=== PATIENT | male | born 1975 | race Asian ===

== ENCOUNTER 2016-06-14 09:47 | Emergency (ER) | payer OTHER ==
[2016-06-14] MEDS ORDERED: LIDOCAINE VISCOUS 2% 15 ML UDC MM STA (10:33)
[2016-06-14] MEDS ORDERED: MAG HYDROX/AL HYDROX/SIMETH 30 ML UDC PO STA (10:34)
[2016-06-14] MEDS ORDERED: LIDOCAINE VISCOUS 2% 15 ML UDC MM ONE (10:37)
[2016-06-14] MEDS ORDERED: MAG HYDROX/AL HYDROX/SIMETH 30 ML UDC ONE (10:37)
[2016-06-14] MEDS ORDERED: IOPAMIDOL-300 100 ML VIAL IVP ONE (12:42)
== END 2016-06-14 14:39 | disposition home or self-care (01) ==
DX: K59.09 Other constipation (principal)
CPT/HCPCS: 36415; 74177; 80053; 83690; 84484; 85025; 99283; 99284; A9270; Q9967

== ENCOUNTER 2016-11-26 11:35 | Emergency (ER) | payer OTHER ==
[2016-11-26] MEDS ORDERED: DEXAMETHASONE 10 MG/ML VIAL PO STA (12:51)
[2016-11-26] MEDS ORDERED: HYDROcod/ACETAM 5/325 MG TABLET PO STA (12:51)
[2016-11-26] MEDS ORDERED: KETOROLAC 60 MG/2 ML VIAL IM STA (12:52)
[2016-11-26] MEDS ORDERED: CYCLOBENZAPRINE 10 MG TABLET PO STA (12:52)
--- NOTE | 2016-11-26 12:54 | ED Physician Documentation ---
History of Present Illness - Stated complaint Stated Complaint: STIFF NECK/PX - Chief complaint Chief Complaint: Heent - History obtained from History obtained from: Patient - History of Present Illness Timing: How many days ago (5) Pain level max: 8 Pain level now: 7 Quality: pain Improved by: rest Worsened by: movement, swelling - Additonal information Additional information: Patient is a 41-year-old male who presents to the emergency department with right-sided neck pain for the last 4-5 days. Has developed a sore throat over the past 2-3 days. Pain and difficulty with swallowing. States felt warm last night. No headaches. No visual changes. No numbness or tingling. States he did take Motrin once and that it did not help much. Review of Systems Constitutional: denies: Chills, Myalgias Eyes: denies: Decreased vision Ears: denies: Ear pain Nose: denies: Rhinorrhea / runny nose, Congestion Throat: denies: Sore throat Cardiac: denies: Chest pain / pressure Respiratory: denies: Cough, Wheezing GI: denies: Abdominal Pain, Nausea, Vomiting, Diarrhea Skin: denies: Rash Musculoskeletal: denies: Back pain Neurologic: denies: Focal weakness, Numbness, Head injury PD PAST MEDICAL HISTORY - Past Medical History Past Medical History: Yes Cardiovascular: None Respiratory: None Neuro: None Endocrine/Autoimmune: None Musculoskeletal: Gout - Past Surgical History Past Surgical History: No - Present Medications Home Medications: Ambulatory Orders Medication Instructions Recorded Confirmed Hydrocodone/Acetaminophen 1 - 2 each PO Q6H PRN #14 tablet 11/26/16 [Hydrocodon-Acetaminophen 5-325] Ibuprofen [Motrin] 800 mg PO Q8H PRN #30 tablet 11/26/16 Prednisone 40 mg PO DAILY #10 tablet 11/26/16 - Allergies Allergies/Adverse Reactions: Allergies Allergy/AdvReac Type Severity Reaction Status Date / Time No Known Drug Allergies Allergy Verified 09/06/13 15:12 - Social History Does the pt smoke?: No Smoking Status: Never smoker Does the pt drink ETOH?: No Does the pt have substance abuse?: No - Immunizations Immunizations are current?: Yes - POLST Patient has POLST: Yes PD ED PE NORMAL - Vitals Vital signs reviewed: Yes - General General: Alert and oriented X 3, No acute distress, Well developed/nourished - HEENT HEENT: PERRL, EOMI, Moist mucous membranes, Other (Moderate posterior oropharyngeal erythema without tonsillar exudates. Uvula midline. No trismus. Normal phonation.) - Neck Neck: Supple, no meningeal sign, Other (Tender palpation over the right side of the neck, reproduces his pain. No visible swelling.) - Cardiac Cardiac: RRR, Strong equal pulses - Respiratory Respiratory: No respiratory distress, Clear bilaterally - Abdomen Abdomen: Soft, Non tender, Non distended - Back Back: No CVA TTP, No spinal TTP - Derm Derm: Warm and dry, No rash - Neuro Neuro: Alert and oriented X 3 - Psych Psych: Normal mood, Normal affect Results - Vitals Vitals: Vital Signs - 24 hr 11/26/16 11/26/16 11:41 13:52 Temperature 36.7 C Heart Rate 63 56 L Respiratory 18 17 Rate Blood Pressure 129/84 H 138/90 H O2 Saturation 98 98 Oxygen O2 Source Room air - Labs Labs: Laboratory Tests 11/26/16 12:50 Group A Strep Rapid Negative PD MEDICAL DECISION MAKING - ED course Complexity details: reviewed results, re-evaluated patient, considered differential, d/w patient ED course: Patient is a 41-year-old male who presents to the emergency department what appears to be pharyngitis. No evidence of retropharyngeal abscess or peritonsillar abscess. He feels much better after Toradol, Decadron and hydrocodone. Tolerating p.o. without difficulty. He is well hydrated, nontoxic. No visible swelling on the neck. Rapid strep is negative. Will place him on pain medication and steroids for the next few days at home and he will return if he worsens. No evidence of meningitis, encephalitis. Patient counseled regarding signs and symptoms for which I believe and urgent re- evaluation would be necessary. Patient with good understanding of and agreement to plan and is comfortable going home at this time This document was made in part using voice recognition software. While efforts are made to proofread this document, sound alike and grammatical errors may occur. Departure - Departure Disposition: 01 Home, Self Care Clinical Impression: Pharyngitis Qualifiers: Pharyngitis/tonsillitis etiology: unspecified etiology Qualified Code(s): J02.9 - Acute pharyngitis, unspecified Condition: Good Instructions: ED Pharyngitis Viral Follow-Up: your,doctor in 3 days for recheck [Other] Prescriptions: Hydrocodone/Acetaminophen [Hydrocodon-Acetaminophen 5-325] 1 - 2 each PO Q6H PRN #14 tablet PRN Reason: pain Ibuprofen [Motrin] 800 mg PO Q8H PRN #30 tablet PRN Reason: PAIN &/OR FEVER Prednisone 40 mg PO DAILY #10 tablet Comments: Return if you worsen. Your strep test is negative today. This should improve over the next few days. As we discussed previously, if you are not improving, you need to return as there are things such as abscesses that can occur further down in the throat that are difficult to see on examination. Do not drink alcohol or drive while on narcotic pain medicine. Note that many narcotic pain relievers also contain tylenol/acetaminophen. Please ensure that your total dose of acetaminophen from all sources does not exceed 3 grams (3000mg) per day. You may constipated on this medication, take a stool softener such as "Colace" twice a day while you are on it. Also recommend a [id number] laxative such as senna or MiraLAX any day that you do not have a bowel movement. If you received narcotic pain medication in the emergency department, do not drive or operate machinery for the next 24 hours. Forms: Activity restrictions Discharge Date/Time: 11/26/16 14:10
[2016-11-26] MEDS ORDERED: DEXAMETHASONE 10 MG/ML VIAL ONE (12:57)
[2016-11-26] MEDS ORDERED: KETOROLAC 60 MG/2 ML VIAL ONE (12:57)
[2016-11-26] MEDS ORDERED: HYDROcod/ACETAM 5/325 MG TABLET ONE (12:57)
[2016-11-26] MEDS ORDERED: CHERRY SYRUP 10 ML UDC PO ONE (12:57)
[2016-11-26] MEDS ORDERED: CYCLOBENZAPRINE 10 MG TABLET PO ONE (12:57)
[2016-11-26 13:06] LABS: RAPID STREP SCREEN REAGENT QC YELLOW (YELLOW)
[2016-11-26 13:55] VITALS: BP 138/90
== END 2016-11-26 14:10 | disposition home or self-care (01) ==
LOC: ED 11:35
DX: J02.9 Acute pharyngitis, unspecified (principal)
CPT/HCPCS: 87070; 87430; 96372; 99283; A9270

== ENCOUNTER 2016-11-30 19:45 | Emergency (ER) | payer OTHER ==
[2016-11-30] MEDS ORDERED: CYCLOBENZAPRINE 10 MG TABLET PO STA (20:24)
[2016-11-30] MEDS ORDERED: CYCLOBENZAPRINE 10 MG TABLET PO ONE (20:49)
--- NOTE | 2016-11-30 21:43 | ED Physician Documentation ---
History of Present Illness - Stated complaint Stated Complaint: NECK/HEAD PX - Chief complaint Chief Complaint: General - History obtained from History obtained from: Patient - History of Present Illness Timing: How many weeks ago (1) Pain level max: 7 Pain level now: 5 Improved by: rest Worsened by: movement - Additonal information Additional information: Patient is a 41-year-old male who presents to the emergency department with recurrent neck pain. He did improve last week after being seen here and treated with medications. States that the pain is returning, worse with turning his head left or right. No difficulty swallowing or pain with swallowing. No fevers. Took Motrin today. Review of Systems Ten Systems: 10 systems reviewed and negative Constitutional: denies: Fever, Chills Nose: denies: Rhinorrhea / runny nose, Congestion Throat: denies: Sore throat Cardiac: denies: Chest pain / pressure Respiratory: denies: Cough, Wheezing GI: denies: Abdominal Pain, Nausea, Vomiting, Diarrhea Skin: denies: Rash Musculoskeletal: denies: Back pain Neurologic: denies: Focal weakness, Numbness, Headache PD PAST MEDICAL HISTORY - Past Medical History Past Medical History: No Cardiovascular: None Respiratory: None Neuro: None Endocrine/Autoimmune: None Musculoskeletal: Gout - Past Surgical History Past Surgical History: No - Present Medications Home Medications: Ambulatory Orders Medication Instructions Recorded Confirmed Hydrocodone/Acetaminophen 1 - 2 each PO Q6H PRN #14 tablet 11/26/16 11/30/16 [Hydrocodon-Acetaminophen 5-325] Ibuprofen [Motrin] 800 mg PO Q8H PRN #30 tablet 11/26/16 11/30/16 Prednisone 40 mg PO DAILY #10 tablet 11/26/16 11/30/16 Cyclobenzaprine [Flexeril] 10 mg PO TID PRN #20 tablet 11/30/16 - Allergies Allergies/Adverse Reactions: Allergies Allergy/AdvReac Type Severity Reaction Status Date / Time No Known Drug Allergies Allergy Verified 11/30/16 20:11 - Social History Does the pt smoke?: No Smoking Status: Never smoker Does the pt drink ETOH?: No Does the pt have substance abuse?: No - Immunizations Immunizations are current?: Yes - POLST Patient has POLST: Yes PD ED PE NORMAL - Vitals Vital signs reviewed: Yes - General General: Alert and oriented X 3, No acute distress, Well developed/nourished - HEENT HEENT: PERRL, Ears normal, Moist mucous membranes, Pharynx benign, Dentition benign - Neck Neck: Supple, no meningeal sign, No JVD, No bruit, Other (Muscle spasm present on the right side of the neck, no adenopathy. No bony tenderness. Normal pharyngeal exam) - Cardiac Cardiac: RRR - Respiratory Respiratory: No respiratory distress, Clear bilaterally - Abdomen Abdomen: Soft, Non tender - Back Back: No CVA TTP, No spinal TTP - Derm Derm: Warm and dry, No rash - Neuro Neuro: Alert and oriented X 3, plate straightener 2-12 intact, No motor deficit, No sensory deficit, Normal speech - Psych Psych: Normal mood, Normal affect Results - Vitals Vitals: Vital Signs - 24 hr 11/30/16 11/30/16 19:51 21:59 Temperature 36.5 C 36.3 C L Heart Rate 74 56 L Respiratory 18 18 Rate Blood Pressure 150/84 H 129/83 H O2 Saturation 98 97 Oxygen O2 Source Room air PD MEDICAL DECISION MAKING - ED course Complexity details: reviewed old records, considered differential, d/w patient ED course: Patient presents to the emergency department what appears to be spasm of the right side of the neck. Given Flexeril here and feels much better, range of motion greatly improved. No evidence of meningitis, encephalitis, retropharyngeal abscess, peritonsillar abscess. Will place on Flexeril for home and follow-up with his doctor. Patient counseled regarding signs and symptoms for which I believe and urgent re-evaluation would be necessary. Patient with good understanding of and agreement to plan and is comfortable going home at this time This document was made in part using voice recognition software. While efforts are made to proofread this document, sound alike and grammatical errors may occur. Departure - Departure Disposition: 01 Home, Self Care Clinical Impression: Neck muscle spasm Condition: Good Instructions: ED Spasm Neck No Injury Follow-Up: [facility] [Provider Group] - Within 1 week Prescriptions: Cyclobenzaprine [Flexeril] 10 mg PO TID PRN #20 tablet PRN Reason: Spasms Comments: Return if you worsen. Do not drive or operate heavy machinery while taking the Flexeril Discharge Date/Time: 11/30/16 21:59
[2016-11-30 22:03] VITALS: BP 129/83
== END 2016-11-30 21:59 | disposition home or self-care (01) ==
LOC: ED 19:45
DX: M62.838 Other muscle spasm (principal); M54.2 Cervicalgia
CPT/HCPCS: 99283; A9270

== ENCOUNTER 2017-02-11 17:04 | Emergency (ER) | payer OTHER ==
[2017-02-11 17:35] VITALS: BP 134/73
[2017-02-11] MEDS ORDERED: IBUPROFEN 400 MG TABLET PO STA (17:40)
[2017-02-11] MEDS ORDERED: ACETAMINOPHEN 325 MG TABLET PO STA (17:40)
[2017-02-11] MEDS ORDERED: CEPHALEXIN 250 MG CAPSULE PO STA (17:41)
--- NOTE | 2017-02-11 17:48 | ED Physician Documentation ---
History of Present Illness - Stated complaint Stated Complaint: LT FT SWELLING - Chief complaint Chief Complaint: Ext Problem - Additonal information Additional information: hx from pt 41 male AD noted redness to top of left foot last Sunday after removing work boots thought it might be gout which he has a hx of took prednisone with no sig changes next day tried colchicine which seemed to make it worse now more red and more painful and subj fever Review of Systems Constitutional: reports: Fever Skin: reports: Rash Musculoskeletal: reports: Extremity pain Immunocompromised: denies: Immunocompromised PD PAST MEDICAL HISTORY - Past Medical History Cardiovascular: None Respiratory: None Neuro: None Endocrine/Autoimmune: None Musculoskeletal: Gout - Past Surgical History Past Surgical History: No - Present Medications Home Medications: Ambulatory Orders Medication Instructions Recorded Confirmed Hydrocodone/Acetaminophen 1 - 2 each PO Q6H PRN #14 tablet 11/26/16 11/30/16 [Hydrocodon-Acetaminophen 5-325] Ibuprofen [Motrin] 800 mg PO Q8H PRN #30 tablet 11/26/16 11/30/16 Prednisone 40 mg PO DAILY #10 tablet 11/26/16 11/30/16 Cyclobenzaprine [Flexeril] 10 mg PO TID PRN #20 tablet 11/30/16 Cephalexin [Keflex] 500 mg PO Q6H #28 capsule 02/11/17 - Allergies Allergies/Adverse Reactions: Allergies Allergy/AdvReac Type Severity Reaction Status Date / Time No Known Drug Allergies Allergy Verified 02/11/17 17:35 - Social History Does the pt smoke?: No Smoking Status: Never smoker Does the pt drink ETOH?: No Does the pt have substance abuse?: No - Immunizations Immunizations are current?: Yes - POLST Patient has POLST: Yes PD ED PE NORMAL - Vitals Vital signs reviewed: Yes - Cardiac Cardiac: RRR - Respiratory Respiratory: No respiratory distress, Clear bilaterally - Extremities Extremities: Other (L foot - warmth swelling and erythema across top of left foot, no local joint pain or swelling, some abrasions to lateral foot perhabs from boot and possible port of entry for infection) Results - Vitals Vitals: Vital Signs - 24 hr 02/11/17 17:23 Temperature 98.3 C H Heart Rate 68 Respiratory 16 Rate Blood Pressure 134/73 H O2 Saturation 98 Oxygen O2 Source Room air Departure - Departure Disposition: 01 Home, Self Care Clinical Impression: Cellulitis Qualifiers: Site of cellulitis: extremity Site of cellulitis of extremity: lower extremity Laterality: left Qualified Code(s): L03.116 - Cellulitis of left lower limb Condition: Good Instructions: ED Infec Skin Cellulitis Follow-Up: [facility] H[facility] [Provider Group] (within 48 hr for an ER follow up) Prescriptions: Cephalexin [Keflex] 500 mg PO Q6H #28 capsule Comments: Follow up at [facility] for a recheck within 48 hr - please have them recheck your blood pressure as well because it was high today
[2017-02-11] MEDS ORDERED: ACETAMINOPHEN 325 MG TABLET PO ONE (17:49)
[2017-02-11] MEDS ORDERED: IBUPROFEN 400 MG TABLET PO ONE (17:49)
[2017-02-11] MEDS ORDERED: CEPHALEXIN 250 MG CAPSULE PO ONE (17:50)
[2017-02-11] MEDS ORDERED: CEPHALEXIN 250 MG Prepack 8 PO ONE (18:03)
== END 2017-02-11 18:07 | disposition home or self-care (01) ==
LOC: ED 17:04
DX: L03.116 Cellulitis of left lower limb (principal); M10.9 Gout, unspecified
CPT/HCPCS: 99283; A9270

== ENCOUNTER 2017-02-15 02:29 | Emergency (ER) | payer OTHER ==
[2017-02-15 02:39] VITALS: BP 135/83
[2017-02-15 02:57] LABS: BASOPHILS % (AUTO) 0.4 %; EOSINOPHILS # (AUTO) 0.2 10^3/uL (0.0-0.7); EOSINOPHILS % (AUTO) 1.7 %; HCT - HEMATOCRIT 37.4 % (42.0-52.0); HGB - HEMOGLOBIN 12.9 g/dL (14.0-18.0); LYMPHOCYTES # (AUTO) 3.5 10^3/uL (1.5-3.5); LYMPHOCYTES % (AUTO) 37.3 %; MEAN CORPUSCULAR HEMOGLOBIN 30.2 pg (27.0-31.0); MEAN CORPUSCULAR HGB CONC 34.6 g/dL (32.0-36.0); MEAN CORPUSCULAR VOLUME 87.4 fL (80.0-94.0); MEAN PLATELET VOLUME 7.1 fL (7.4-11.4); MONOCYTES # (AUTO) 0.6 10^3/uL (0.0-1.0); MONOCYTES % (AUTO) 6.8 %; NEUTROPHILS # (AUTO) 5.1 10^3/uL (1.5-6.6); NEUTROPHILS % (AUTO) 53.8 %; NUCLEATED RED BLOOD CELLS AUTO 0.1 /100WBC; RED BLOOD COUNT 4.28 10^6/uL (4.70-6.10); RED CELL DISTRIBUTION WIDTH 13.2 % (12.0-15.0); UNCORRECTED WHITE BLOOD COUNT 9.5 x10^3/uL; WHITE BLOOD COUNT 9.5 x10^3/uL (4.8-10.8)
--- NOTE | 2017-02-15 03:19 | XRAY Preliminary Report ---
Exam: XR FOOT 2 VIEW LT IMPRESSION: 1. Fracture of uncertain age at the base of the fifth proximal phalanx, new compared with 03/21/2016. 2. Soft tissue swelling. [facility] SITE ID: [id number]
--- NOTE | 2017-02-15 03:22 | XRAY Report ---
EXAM: LEFT FOOT RADIOGRAPHY EXAM DATE: 02/15/2017 03:11 AM. CLINICAL HISTORY: Foot pain with overlying cellulitis. COMPARISON: 03/21/2016. TECHNIQUE: 2 views. FINDINGS: Bones: Fracture of uncertain age at the base of the fifth proximal phalanx, not seen on the prior exa m. No focal area of bone destruction identified. Joints: No dislocation seen. Joint spaces appear intact. Soft Tissues: Soft tissue swelling. IMPRESSION: 1. Fracture of uncertain age at the base of the fifth proximal phalanx, new compared with 03/21/2016. 2. Soft tissue swelling. [facility] Referring Provider Line: [phone] SITE ID: [id number]
[2017-02-15] MEDS ORDERED: KETOROLAC 60 MG/2 ML VIAL IM STA (04:11)
--- NOTE | 2017-02-15 04:14 | ED Physician Documentation ---
PD HPI LOWER EXT INJURY - Stated complaint Stated Complaint: L FOOT PX - Chief complaint Chief Complaint: Ext Problem - History obtained from History obtained from: Patient, Friend - History of Present Illness PD HPI LOW EXT INJURY LOCATION: Left, Foot Where injury occurred: Home Timing - onset: How many days ago (4) Timing - details: Gradual onset, Still present Worsened by: Moving, Palpating Similar symptoms before: Work up / diagnostics, Treatment Recently seen: Clinic - Additional information Additional information: Patient is a 41 year old male with no significant past medical history who is presenting to the emergency department for foot pain. Patient was diagnosed with cellulitis 4 days prior. Patient has been taking keflex. Patient states that the area of redness is getting smaller but the pain has gotten worse. Patient states that he has not taken anything for the pain. Patient denied nausea, vomiting, fever or chills. Review of Systems Constitutional: denies: Fever, Chills Eyes: reports: Decreased vision, Reviewed and negative Ears: reports: Reviewed and negative Nose: reports: Reviewed and negative Throat: reports: Reviewed and negative Cardiac: denies: Chest pain / pressure Respiratory: reports: Reviewed and negative GI: denies: Nausea, Vomiting : reports: Reviewed and negative Skin: reports: Rash Musculoskeletal: reports: Extremity pain, Extremity swelling Neurologic: denies: Generalized weakness, Focal weakness, Numbness Immunocompromised: denies: Immunocompromised PD PAST MEDICAL HISTORY - Past Medical History Past Medical History: Yes Cardiovascular: None Respiratory: None Neuro: None Endocrine/Autoimmune: None Musculoskeletal: Gout - Past Surgical History Past Surgical History: No - Present Medications Home Medications: Ambulatory Orders Medication Instructions Recorded Confirmed Ibuprofen [Motrin] 800 mg PO Q8H PRN #30 tablet 11/26/16 02/15/17 Cephalexin [Keflex] 500 mg PO Q6H #28 capsule 02/11/17 02/15/17 Naproxen 375 mg PO BID #14 tablet 02/15/17 - Allergies Allergies/Adverse Reactions: Allergies Allergy/AdvReac Type Severity Reaction Status Date / Time No Known Drug Allergies Allergy Verified 02/11/17 17:35 - Social History Does the pt smoke?: Yes Smoking Status: Current every day smoker Does the pt drink ETOH?: No Does the pt have substance abuse?: No - Immunizations Immunizations are current?: Yes - POLST Patient has POLST: No PD ED PE NORMAL - Vitals Vital signs reviewed: Yes - General General: Alert and oriented X 3, No acute distress, Well developed/nourished - HEENT HEENT: Atraumatic, PERRL - Neck Neck: Supple, no meningeal sign - Cardiac Cardiac: RRR, No murmur - Respiratory Respiratory: No respiratory distress - Abdomen Abdomen: Non distended - Neuro Neuro: Alert and oriented X 3, No motor deficit, No sensory deficit, Normal speech - Psych Psych: Normal mood, Normal affect PD ED PE EXPANDED - Derm Derm: Rash (cellulitic rash of left foot) - Extremities Extremities: Left foot (cellulitis of left superior, lateral foot. area is smaller than previous outline) Results - Vitals Vitals: Vital Signs - 24 hr 02/15/17 02:35 Temperature 37 C Heart Rate 68 Respiratory 16 Rate Blood Pressure 135/83 H O2 Saturation 98 Oxygen O2 Source Room air - Labs Labs: Laboratory Tests 02/15/17 02/15/17 02/15/17 02:51 02:51 02:51 WBC 9.5 RBC 4.28 L Hgb 12.9 L Hct 37.4 L MCV 87.4 MCH 30.2 MCHC 34.6 RDW 13.2 Plt Count 231 MPV 7.1 L Neut # 5.1 Lymph # 3.5 Mccreary # 0.6 Eos # 0.2 Baso # 0.0 Absolute Nucleated RBC 0.01 Nucleated RBC % 0.1 ESR 29 H C-Reactive Protein < 1.0 - Rads (name of study) foot x-ray Radiology: Final report received (age indetermine hairline fx at base of 5th metatarsal) PD MEDICAL DECISION MAKING - ED course Complexity details: reviewed old records, reviewed results, re-evaluated patient , considered differential, d/w patient ED course: Patient was seen and examined at bedside. patient's vital signs were within normal limits. labs were drawn and imaging was ordered. patient's labs showed no major abnormalities. x ray showed a questionable fracture at the base of the metacarpal but patient denied any type of trauma and the cortices were intact so it was unlikely an acute fracture. patient was treated with toradol for pain. Patient required no further work up was stable for discharge with outpatient follow up. Departure - Departure Disposition: 01 Home, Self Care Clinical Impression: Cellulitis Condition: Good Instructions: ED Infec Skin Cellulitis Follow-Up: GAGANDEEP BARRAGAN [Primary Care Provider] - Tomorrow Prescriptions: Naproxen 375 mg PO BID #14 tablet Comments: Your diagnostics today were within normal limits. You pain is likely secondary to your skin infection. You should continue with the antibiotics. You can take motrin or tylenol as needed for pain. [place]. You can return to the emergency department at any time for new, worsening or uncontrollable symptoms. Forms: Activity restrictions
[2017-02-15] MEDS ORDERED: KETOROLAC 60 MG/2 ML VIAL ONE (04:40)
== END 2017-02-15 05:05 | disposition home or self-care (01) ==
LOC: ED 02:29
DX: L03.116 Cellulitis of left lower limb (principal); F17.200 Nicotine dependence, unspecified, uncomplicated
CPT/HCPCS: 36415; 85025; 85651; 86140; 96372; 99283

== ENCOUNTER 2017-05-14 05:52 | Emergency (ER) | payer OTHER ==
[2017-05-14 06:01] VITALS: BP 132/82
[2017-05-14] MEDS ORDERED: cephALEXin 250 MG CAPSULE PO STA (06:20)
[2017-05-14] MEDS ORDERED: IBUPROFEN 600 MG TABLET PO STA (06:20)
--- NOTE | 2017-05-14 06:21 | ED Physician Documentation ---
PD HPI LOWER EXT INJURY - Stated complaint Stated Complaint: ALEXA FOOT PAIN,FEVER - Chief complaint Chief Complaint: Ext Problem - History obtained from History obtained from: Patient - History of Present Illness PD HPI LOW EXT INJURY LOCATION: Right, Left, Foot Type of injury: No: Fall, Twist Where injury occurred: Home Timing - onset: How many days ago (3) Timing - details: Gradual onset, Still present Improved by: Immobilization Worsened by: Moving, Palpating Associated symptoms: Swelling, Discolored Similar symptoms before: Work up / diagnostics, Treatment Recently seen: Not recently seen - Additional information Additional information: patient is a 41 year old male with multiple ER visits who is presenting to the emergency department for bilateral foot pain, worse on the right. patient states that it has been going on since sunday and that he thinks it might have started after having to squat like a duck. patient states that he also has gout but it doesn't feel like gout. patient states that he has high arches and needs new orthotics. Patient denied any trauma but states that he had a fever yesterday. Review of Systems Constitutional: reports: Fever. denies: Chills, Myalgias Eyes: reports: Reviewed and negative Ears: reports: Reviewed and negative Nose: reports: Reviewed and negative Throat: reports: Reviewed and negative Cardiac: reports: Reviewed and negative GI: reports: Reviewed and negative : reports: Reviewed and negative Skin: reports: Rash. denies: Lesions, Abrasion (s) Musculoskeletal: reports: Extremity pain, Extremity swelling Neurologic: denies: Generalized weakness Immunocompromised: denies: Immunocompromised PD PAST MEDICAL HISTORY - Past Medical History Past Medical History: Yes Cardiovascular: None Respiratory: None Neuro: None Endocrine/Autoimmune: None Musculoskeletal: Gout - Past Surgical History Past Surgical History: No - Present Medications Home Medications: Ambulatory Orders Medication Instructions Recorded Confirmed Ibuprofen [Motrin] 800 mg PO Q8H PRN #30 tablet 11/26/16 05/14/17 Naproxen 375 mg PO BID #14 tablet 02/15/17 05/14/17 Cephalexin [Keflex] 500 mg PO Q6H 7 Days capsule 05/14/17 HYDROcod/ACETAM 5/325 [[place] 5/325] 1 tab PO Q6H PRN 05/14/17 05/14/17 - Allergies Allergies/Adverse Reactions: Allergies Allergy/AdvReac Type Severity Reaction Status Date / Time No Known Drug Allergies Allergy Verified 05/14/17 05:58 - Social History Does the pt smoke?: Yes Smoking Status: Current every day smoker Does the pt drink ETOH?: No Does the pt have substance abuse?: No - Immunizations Immunizations are current?: Yes - POLST Patient has POLST: No PD ED PE NORMAL - Vitals Vital signs reviewed: Yes - General General: Alert and oriented X 3, No acute distress, Well developed/nourished - HEENT HEENT: Atraumatic - Neck Neck: Supple, no meningeal sign - Cardiac Cardiac: RRR - Respiratory Respiratory: No respiratory distress - Abdomen Abdomen: Non distended - Neuro Neuro: Alert and oriented X 3, No motor deficit, No sensory deficit, Normal speech PD ED PE EXPANDED - Extremities Extremities: Right foot (tenderness warmth and erythema to medial component of right foot) Results - Vitals Vitals: Vital Signs - 24 hr 05/14/17 05:55 Temperature 36.2 C L Heart Rate 80 Respiratory 16 Rate Blood Pressure 132/82 H O2 Saturation 100 Oxygen O2 Source Room air PD MEDICAL DECISION MAKING - ED course Complexity details: reviewed old records, reviewed results, re-evaluated patient , considered differential, d/w patient ED course: Patient was seen and examined at bedside. patient's findings were consistent with cellulitis. patient was treated with keflex and ibuprofen and the cellulitis was outlined. Patient required no further work up and was stable for discharge with outpatient follow up. Departure - Departure Disposition: 01 Home, Self Care Clinical Impression: Cellulitis Condition: Good Instructions: Cellulitis Dc Follow-Up: GAGANDEEP BARRAGAN [Primary Care Provider] - Tomorrow Prescriptions: Cephalexin [Keflex] 500 mg PO Q6H 7 Days capsule Comments: It appears as if you are developing an infection on your right foot. You have been treated with your first dose of antibiotics today. It has been outlined and you will need to [place] up with [place] doctor for further evaluation and care. Forms: Activity restrictions
== END 2017-05-14 06:45 | disposition home or self-care (01) ==
LOC: ED 05:52
DX: L03.115 Cellulitis of right lower limb (principal); F17.200 Nicotine dependence, unspecified, uncomplicated
CPT/HCPCS: 99283; A9270

== ENCOUNTER 2017-06-19 04:48 | Emergency (ER) | payer OTHER ==
[2017-06-19] MEDS ORDERED: KETOROLAC 60 MG/2 ML VIAL IM STA (05:02)
--- NOTE | 2017-06-19 05:03 | ED Physician Documentation ---
PD HPI LOWER EXT INJURY - Stated complaint Stated Complaint: RT FOOT PAIN - Chief complaint Chief Complaint: Ext Problem - History obtained from History obtained from: Patient - History of Present Illness PD HPI LOW EXT INJURY LOCATION: Right, Foot Type of injury: No: Fall, Twist Where injury occurred: Home Timing - onset: Chronic Timing - details: Intermittant Similar symptoms before: Work up / diagnostics, Treatment Recently seen: Clinic - Additional information Additional information: Patient is a 41 year old male with multiple ER visits for foot pain. Patient states that it had been better over the weekend when he was able to rest, but he had to walk a lot at work and the pain came back[place]. 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 Patient had no systemic symptoms or new trauma. Review of Systems Constitutional: denies: Fever, Chills Eyes: reports: Reviewed and negative Ears: reports: Reviewed and negative Nose: reports: Reviewed and negative Throat: reports: Reviewed and negative Cardiac: reports: Reviewed and negative Respiratory: reports: Reviewed and negative GI: reports: Reviewed and negative : reports: Reviewed and negative Skin: denies: Rash, Lesions Musculoskeletal: reports: Extremity pain, Extremity swelling Neurologic: denies: Generalized weakness, Focal weakness, Numbness Immunocompromised: denies: Immunocompromised PD PAST MEDICAL HISTORY - Past Medical History Cardiovascular: None Respiratory: None Neuro: None Endocrine/Autoimmune: None Musculoskeletal: Gout - Past Surgical History Past Surgical History: No - Present Medications Home Medications: Ambulatory Orders Medication Instructions Recorded Confirmed Ibuprofen [Motrin] 800 mg PO Q8H PRN #30 tablet 11/26/16 05/14/17 Naproxen 375 mg PO BID #14 tablet 02/15/17 05/14/17 Cephalexin [Keflex] 500 mg PO Q6H 7 Days capsule 05/14/17 HYDROcod/ACETAM 5/325 [[place] 5/325] 1 tab PO Q6H PRN 05/14/17 05/14/17 - Allergies Allergies/Adverse Reactions: Allergies Allergy/AdvReac Type Severity Reaction Status Date / Time No Known Drug Allergies Allergy Verified 06/19/17 05:07 - Social History Does the pt smoke?: Yes Smoking Status: Current every day smoker Does the pt drink ETOH?: No Does the pt have substance abuse?: No - Immunizations Immunizations are current?: Yes - POLST Patient has POLST: No PD ED PE NORMAL - Vitals Vital signs reviewed: Yes - General General: Alert and oriented X 3, No acute distress - HEENT HEENT: Atraumatic - Cardiac Cardiac: RRR - Respiratory Respiratory: No respiratory distress - Abdomen Abdomen: Soft - Extremities Extremities: No deformity - Neuro Neuro: Alert and oriented X 3, No motor deficit, No sensory deficit, Normal speech - Psych Psych: Normal mood PD ED PE EXPANDED - Extremities Extremities: Right foot (tenderness to palpation of medial right foot, no bony tenderness) Results - Vitals Vitals: Vital Signs - 24 hr 06/19/17 04:53 Temperature 36.5 C Heart Rate 64 Respiratory 16 Rate Blood Pressure 156/96 H O2 Saturation 98 Oxygen O2 Source Room air PD MEDICAL DECISION MAKING - ED course Complexity details: reviewed old records, re-evaluated patient, considered differential, d/w family ED course: Patient was seen and examined at bedside. Patient was treated with toradol. Patient had follow up with a electrical sign wirer helper and mri scheduled. patient required no further work up and was stable for discharge with outpatient follow up. Departure - Departure Disposition: 01 Home, Self Care Clinical Impression: Pain of lower extremity Condition: Good Instructions: ED RICE Follow-Up: GAGANDEEP BARRAGAN [Primary Care Provider] - Tomorrow Comments: You can take motrin or tylenol as needed for pain. you should follow up with your doctor and go for your mri tomorrow. you should follow up with your doctor for your chronic intermittent foot pain.
[2017-06-19 05:36] VITALS: BP 143/69
== END 2017-06-19 05:38 | disposition home or self-care (01) ==
LOC: ED 04:48
DX: M79.671 Pain in right foot (principal); F17.200 Nicotine dependence, unspecified, uncomplicated
CPT/HCPCS: 99283

== ENCOUNTER 2017-07-26 16:19 | Outpatient (CLI) | payer OTHER ==
--- NOTE | 2017-07-26 18:37 | MRI Report ---
EXAM: MRI LUMBAR SPINE WITHOUT CONTRAST EXAM DATE: 07/26/2017 05:17 PM. CLINICAL HISTORY: Bilateral lower leg decreased sensation. Foot and knee pain. COMPARISON: 10/20/11. TECHNIQUE: Multiplanar, multisequence T1-weighted and fluid-sensitive sequences of the lumbar spine f rom T12 to S1 without contrast. Other: None. FINDINGS: Spinal Cord: The conus terminates at L1. The conus medullaris and cauda equina are unremarkable. Alignment: No scoliosis or spondylolisthesis. Bone Marrow: Five ayt-qub-papvcys lumbar vertebral bodies are assumed. New mild marrow edema consiste nt with degenerative endplate signal changes of the upper right L5 vertebral body adjacent to probabl e developing shallow degenerative Schmorl's node. Disk Levels/Facets: T12-L1: Unremarkable. L1-L2: Unremarkable. L2-L3: Unremarkable. L3-L4: Mildly progressive disk degeneration, there is now a shallow diffuse annular disk bulge but no focal extrusion or significant-appearing stenosis. L4-L5: Mildly progressive degenerative disk disease. Minimal additional disk space narrowing. Stable mild bilateral facet arthropathy. Broad-based disk bulge with mild marginal spurring is again seen. N ew or more conspicuous annular fissure posteriorly to the right of midline where there again seen is a slightly asymmetric more prominent posterior disk protrusion at the level of the right subarticular zone extending into the right neural foramen. No significant or progressive central stenosis. Mild t o moderate right subarticular zone stenosis. Moderate right foraminal zone stenosis and minimal left foraminal stenosis. L5-S1: Minimal degenerative disk disease posteriorly but no stenosis or disk herniation. Musculature: Normal. No edema or fatty atrophy. Other: None. IMPRESSION: 1. Progressive degenerative disk disease at L4-L5. 2. Again seen is a broad-based bulge with additional asymmetric right of midline posterior disk protr usion at the L4-L5 level now with an annular fissure. This is associated with potentially significant stenosis of the right neural foramen and right subarticular zone that are similar to findings on the prior exam. At this level, the central canal and left neural foramen do not show significant appeari ng narrowing. These findings may be associated with right L4 and/or right L5 nerve root impingement. 3. Minimal degenerative changes but no significant stenosis at L5-S1. 4. Minimal broad-based bulge at L3-L4, new, but without significant associated stenosis or developing neural impingement. Comment: The following findings are so common in adults without low back pain that while we report th eir presence, they must be interpreted with caution and in the context of the clinical situation. (Re bertram Parish et al, Spine 2001) Prevalence of findings in patients without low back pain: Disk degeneration (any evidence): 92% Disk desiccation/T2 signal loss: 83% Disk height loss: 56% Disk bulge: 64% Disk protrusion: 32% Annular tear/high intensity zone: 38% [facility] Referring Provider Line: [phone] SITE ID: [id number]
== END 2017-07-26 16:20 | disposition home or self-care (01) ==
LOC: DI 16:19
PROVIDERS: ATTEND Anesthesiology Pain Medicine
DX: M51.26 Other intervertebral disc displacement, lumbar region (principal); M51.36 Other intervertebral disc degeneration, lumbar region; M51.37 Other intervertebral disc degeneration, lumbosacral region
CPT/HCPCS: 72148

== ENCOUNTER 2018-08-16 16:08 | Emergency (ER) | payer OTHER ==
[2018-08-16 16:13] VITALS: BP 146/76
[2018-08-16] MEDS ORDERED: cephALEXin 250 MG CAPSULE PO STA (16:36)
--- NOTE | 2018-08-16 16:41 | ED Physician Documentation ---
PD HPI LOWER EXT INJURY - Stated complaint Stated Complaint: LT FOOT PX - Chief complaint Chief Complaint: Trauma Ext - History obtained from History obtained from: Patient - History of Present Illness PD HPI LOW EXT INJURY LOCATION: Left, Foot Type of injury: Other (No specific injury.) Timing - onset: Yesterday Associated symptoms: Discolored Similar symptoms before: Diagnosis (History of similar symptoms in the past with cellulitis and with gout.) - Treatment prior to arrival Treatment prior to arrival: He took colchicine without relief. - Additional information Additional information: The patient is a 42-year-old male with history of gout, who presents with pain in his left foot. The pain started yesterday and has become worse today. He denies any traumatic injury. He has noticed redness at the medial aspect of his midfoot. He took colchicine last night and today, but the pain has become worse. Review of Systems Constitutional: denies: Fever Throat: denies: Sore throat Respiratory: denies: Dyspnea, Cough Skin: reports: Rash (Redness of the left foot.) Musculoskeletal: reports: Extremity pain (Left foot.) Neurologic: denies: Focal weakness, Numbness PD PAST MEDICAL HISTORY - Past Medical History Past Medical History: Yes Cardiovascular: None Respiratory: None Endocrine/Autoimmune: None Psych: None Musculoskeletal: Gout - Past Surgical History Past Surgical History: No - Present Medications Home Medications: Ambulatory Orders Medication Instructions Recorded Confirmed Ibuprofen [Motrin] 800 mg PO Q8H PRN #30 tablet 11/26/16 05/14/17 Naproxen 375 mg PO BID #14 tablet 02/15/17 05/14/17 Cephalexin [Keflex] 500 mg PO Q6H 7 Days capsule 05/14/17 HYDROcod/ACETAM 5/325 [[place] 5/325] 1 tab PO Q6H PRN 05/14/17 05/14/17 cephALEXin [Cephalexin] 500 mg PO TID #20 tablet 08/16/18 - Allergies Allergies/Adverse Reactions: Allergies Allergy/AdvReac Type Severity Reaction Status Date / Time No Known Drug Allergies Allergy Verified 08/16/18 16:13 - Social History Does the pt smoke?: Yes Smoking Status: Current every day smoker Does the pt drink ETOH?: No Does the pt have substance abuse?: No - Immunizations Immunizations are current?: Yes - POLST Patient has POLST: No PD ED PE NORMAL - Vitals Vital signs reviewed: Yes (systolic hypertension) - General General: Alert and oriented X 3, Well developed/nourished - HEENT HEENT: Atraumatic - Respiratory Respiratory: No respiratory distress - Derm Derm: No rash - Extremities Extremities: No edema, No calf tenderness / cord, Other (There is mild erythema over the dorsal medial aspect of the left foot, with associated mild warmth to palpation. There is no swelling or lymphangitic streaking. Distal neurovascular is intact.) - Neuro Neuro: Alert and oriented X 3, No motor deficit, No sensory deficit Results - Vitals Vitals: Oxygen O2 Source Room air PD MEDICAL DECISION MAKING - ED course Complexity details: considered differential, d/w patient ED course: The patient's presentation is most consistent with superficial cellulitis involving the left foot. There is no break in the integument, and no evidence of abscess. Gout was considered, given the patient's history, but is less likely. Treatment in the emergency department included administration of cephalexin 500 mg orally, and ibuprofen 800 mg orally. He is being discharged with a prescription for cephalexin. I discussed with him the expected course of illness, antibiotic treatment and outpatient follow-up, as well as potentially worrisome signs or symptoms that should prompt reevaluation in the emergency department. Departure - Departure Disposition: 01 Home, Self Care Clinical Impression: Cellulitis Qualifiers: Site of cellulitis: extremity Site of cellulitis of extremity: lower extremity Laterality: left Qualified Code(s): L03.116 - Cellulitis of left lower limb Condition: Stable Instructions: ED Infec Skin Cellulitis Follow-Up: GAAGNDEEP BARRAGAN [Primary Care Provider] - Prescriptions: cephALEXin [Cephalexin] 500 mg PO TID #20 tablet Comments: Take cephalexin 3 times daily as prescribed. Keep your right leg elevated as much the time as possible. You can use ibuprofen, up to 800 mg 3 times daily for its anti-inflammatory effect. Follow-up with your primary physician within 1-2 weeks. Call to schedule a ppointment. Return to the emergency department if you develop increasing redness, swelling, pain, or otherwise worsening symptoms. Discharge Date/Time: 08/16/18 16:56
[2018-08-16] MEDS ORDERED: IBUPROFEN 800 MG TABLET PO STA (16:44)
== END 2018-08-16 16:56 | disposition home or self-care (01) ==
LOC: ED 16:08
DX: L03.116 Cellulitis of left lower limb (principal); F17.200 Nicotine dependence, unspecified, uncomplicated
CPT/HCPCS: 99283; A9270

== ENCOUNTER 2018-11-29 19:31 | Emergency (ER) | payer OTHER ==
[2018-11-29 19:36] VITALS: BP 144/81
--- NOTE | 2018-11-29 19:55 | ED Physician Documentation ---
History of Present Illness - Stated complaint Stated Complaint: SWOLLEN LEFT FOOT - Chief complaint Chief Complaint: Ext Problem - History obtained from History obtained from: Patient - History of Present Illness Timing: Prior to arrival - Additonal information Additional information: Patient is a previously healthy 43-year-old male presenting with isolated left foot swelling without rash, pain, injury or other complaints. Patient reports walking in the grass while cramping and feeling as though something bit him. Patient denies actual bite domínguez, abrasions, lacerations. Patient denies change in sensation, strength, range of motion or ability to walk. Patient also denies any known allergies or respiratory complaints. No other improving or worsening factors noted. Review of Systems Skin: reports: Bite / sting. denies: Rash, Lesions, Abrasion (s), Laceration (s) Musculoskeletal: reports: Extremity swelling. denies: Extremity pain, Joint pain, Joint swelling, Pain with weight bearing Neurologic: denies: Focal weakness, Numbness PD PAST MEDICAL HISTORY - Past Medical History Past Medical History: Yes Cardiovascular: None Respiratory: None Endocrine/Autoimmune: None Psych: None Musculoskeletal: Gout - Past Surgical History Past Surgical History: No - Present Medications Home Medications: Ambulatory Orders Medication Instructions Recorded Confirmed predniSONE [Deltasone] 10 mg PO [id number] #42 tab 11/29/18 - Allergies Allergies/Adverse Reactions: Allergies Allergy/AdvReac Type Severity Reaction Status Date / Time No Known Drug Allergies Allergy Verified 11/29/18 19:36 - Social History Does the pt smoke?: Yes Smoking Status: Former smoker Does the pt drink ETOH?: No Does the pt have substance abuse?: No - Immunizations Immunizations are current?: Yes - POLST Patient has POLST: No PD ED PE NORMAL - Vitals Vital signs reviewed: Yes - General General: Alert and oriented X 3, No acute distress, Well developed/nourished - HEENT HEENT: Atraumatic, Moist mucous membranes - Cardiac Cardiac: Strong equal pulses - Respiratory Respiratory: No respiratory distress - Derm Derm: Normal color, Warm and dry, No rash, Other (Mild appreciable swelling to left foot diffusely) - Extremities Extremities: No deformity, No tenderness to palpate. No: No edema - Neuro Neuro: Alert and oriented X 3, No motor deficit, No sensory deficit - Psych Psych: Normal mood, Normal affect Results - Vitals Vitals: Vital Signs - 24 hr 11/29/18 19:32 Temperature 36.3 C L Heart Rate 70 Respiratory 18 Rate Blood Pressure 144/81 H O2 Saturation 98 Oxygen O2 Source Room air PD MEDICAL DECISION MAKING - ED course Complexity details: considered differential, d/w patient ED course: Patient appears to be having localized reaction to his left foot. Patient has significant swelling without obvious evidence of bite, rash, laceration or other particular exposure. Do not feel this reflects gout and patient denies symptoms similar to his previous episodes of gout. Also low suspicion for cellulitis, abscess, lymphangitis, DVT, bony abnormality such as dislocation or fracture. No other signs of allergic reaction or anaphylaxis. Discussed use of steroids, as well as vacz-jpo-vqhzuvy medications, other supportive cares, return precautions and appropriate follow-up. Patient voiced understanding and is comfortable with discharge plan. Departure - Departure Disposition: 01 Home, Self Care Condition: Good Instructions: ED Allergic Reaction Local Other Follow-Up: your,doctor [Other] Prescriptions: predniSONE [Deltasone] 10 mg PO [id number] #42 tab Comments: Please take steroids as prescribed to help reduce allergic reaction symptoms. May also elevate, ice, and use ibuprofen/Tylenol. If itchy or experiencing further reaction, may use Benadryl. Follow-up with primary care physician in next 2 to 3 days and return to ED sooner if experience worsening symptoms or have other concerns.
[2018-11-29] MEDS ORDERED: predniSONE 20 MG TABLET PO STA (20:07)
== END 2018-11-29 20:19 | disposition home or self-care (01) ==
LOC: ED 19:31
DX: T78.40XA Allergy, unspecified, initial encounter (principal); X58.XXXA Exposure to other specified factors, initial encounter; Z87.891 Personal history of nicotine dependence
CPT/HCPCS: 99282; 99284; J7512

== ENCOUNTER 2019-01-07 10:22 | Outpatient (CLI) | payer OTHER ==
[2019-01-07 12:47] VITALS: BP 120/60
--- NOTE | 2019-01-07 12:47 | SLEEP CARE CONSULTATION ---
Information from patient questionnaire entered by Yelitza Zheng. I have reviewed and concur with the information entered by Yelitza Zheng. This document represents the service I personally performed and the decisions made by me, Garret Soliman MD, [facility]. History of Present Illness Reason for Visit: sleep apnea on CPAP therapy, Re-establish care Chief Complaint: reports: Snoring, Observed pauses in breathing Duration of Symptoms: 12 Usual bedtime: 3:00 AM Time it takes to fall asleep: 60-120 MINUTES Snores at night: Yes Observed to quit breathing while asleep: Yes Sleeps alone due to snoring: Yes Toss, Turn, or Twitch while sleeping: Yes Recalls having dreams: Yes Usually gets out of bed at: 8:00 AM Morning headache: No Sleepy or fatigued during the day: Yes Takes day naps: Yes Dreams during day naps: Yes Prior sleep studies: Yes Year and Where: 2008 [facility] Additional HPI information: I had the pleasure of seeing Mr. Mueller today regarding obstructive sleep apnea-hypopnea. As you know, he is a 43 year old gentleman who diagnosed with moderate obstructive sleep apnea-hypopnea (AHI was 20.2 in 2008) and prescribed a CPAP. He has been using his CPAP off and on. He got a new machine in 2016. The Respironics Dreamstation is set at 4 20 cmH2O. The compliance data show usage in 75 out of the past 180 nights, averaging 2.5 hours a night. The > 4 hour compliance rate for the past 30 days is 7.2%. The residual AHI is 2.7 and average time in large leak per day is 16 minutes. He wears the Respironics DreamWear nasal cushion mask. He says that the mask comes off frequently at night. [employer] is his durable medical supplier. 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 Patient is and lives in [place]. Have you smoked in the past 12 months: Yes Cigarettes per day (20/pack): 10 Years of smokin Smoking Pack Years: 10.0 Alcohol use: Yes Alcohol amount and frequency: 3 BOTTLES/WEEK Caffeine use: Yes Caffeine amount and frequency: 4 TIMES/WEEK Family History Family history of sleep disordered breathing: Yes Family Hx Sleep Apnea: Father: Snoring Allergies and Home Medications Drug allergies reviewed: Yes Home medication list reviewed: Yes Review of Systems Cardiovascular: denies: high blood pressure, palpitations, chest pain, irregular heart rate or pulse, leg or foot swelling, have to sleep sitting up, other Respiratory: denies: shortness of breath, wheeze, sputum production, chronic cou gh, other Gastrointestinal: denies: heartburn, difficulty swallowing, nausea, vomitting, diarrhea, abdominal pain, other Urinary: denies: incontinence, frequency, urgency, impotence, other Neurological: denies: headaches, seizure, head trauma, disorientation, speech dysfunction, gait or balance problems, fainting or unconsciousness, other Ear/Nose/Throat: denies: nasal congestion, sinus problems, nose bleeds, dry mouth/throat, hoarseness, injury to nose, tonsillectomy, wisdom teeth removed, other Endocrine: denies: thyroid disease, history of goiter, sluggishness, too hot or cold, excessive thirst, increased appetite, increased urination, unexplained weakness, other Musculoskeletal: denies: joint pain, neck pain, back pain, joint swelling, muscle pain or cramping, mobility problems, other Immunologic: denies: sneezing, rash, itching, allergies to food or environment, other Physical Exam Vital signs obtained and entered by: Dr. Soliman Blood Pressure: 120/60 Heart Rate: 67 O2 Saturation: 98 Height: 6 ft Weight (kg): 205 lb Weight change since last visit: 12 Body Mass Index: 27.8 BMI Classification: Overweight Neck circumference: 15.5 Mood/affect: normal HEENT: No craniofacial malformation Nostrils: patent to airflow Turbinates: normal Septum: midline Mouth and throat: narrow oropharynx Soft palate: long Hard palate: normal Uvula: normal Uvula visualization: 50% Mallampati Class II Tongue: normal in size Tonsils: small Chin and jaw: normal size and position Neck: normal w/o lymphadenopathy or thyromegaly Heart: regular rate and rhythm Lungs: clear bilaterally Abdomen: soft, non-tender Extremities: no edema or clubbing Neurologic: intact, no focal deficits Impression and Plan IMPRESSION: 1. Obstructive Sleep Apnea-Hypopnea Syndrome, moderate, as previously diagnosed. The patient has [id number] compliance due to his mask coming off at night. I will order him a different mask. The current pressure setting appears effective and comfortable. No adjustment is necessary. Plan: 1. Prescription made for a ResMed N30i mask. 2. Put the mask back on if it comes off during the night. 3. Avoid alcohol, sedative and muscle relaxant around bedtime. 4. Attempt to lose weight. I spent 100% of this 15 minute visit face to face with the patient with greater than 50% of this was spent time counseling the patient and coordination of care.
== END 2019-01-07 10:23 | disposition home or self-care (01) ==
LOC: SC 10:22
PROVIDERS: ATTEND Internal Medicine Pulmonary Disease
DX: G47.33 Obstructive sleep apnea (adult) (pediatric) (principal)
CPT/HCPCS: 99203; 99212

== ENCOUNTER 2019-04-02 04:32 | Emergency (ER) | payer OTHER ==
[2019-04-02] MEDS ORDERED: EPINEPHrine 1 MG/ML AMP ONE (04:37)
[2019-04-02] MEDS ORDERED: diphenhydrAMINE INJ 50 MG/ML VIAL IVP STA (04:42)
[2019-04-02] MEDS ORDERED: methylPREDNISolone SUCCINATE 125 MG/2 ML VIAL IVP STA (04:42)
[2019-04-02] MEDS ORDERED: FAMOTIDINE 20 MG/2 ML VIAL IVP STA (04:42)
--- NOTE | 2019-04-02 04:44 | ED Physician Documentation ---
History of Present Illness - Stated complaint Stated Complaint: SOA/ITCHY - Additonal information Additional information: This is a 43-year-old male who presents with a rash and shortness of breath. Patient has a history of a shrimp allergy, but has not had an anaphylactic react ion in the past, he typically gets hives/itchy rash. He states that he thought that he no longer had an allergy because he had some garlic shrimp in [place] which did not affect him, but last night he ate shrimp that his cooked for him and he woke up this morning with an itchy rash and a feeling that he was slightly short of breath. He took 50 mg of Benadryl prior to arrival. He denies any swelling of his lips or mouth. Review of Systems Constitutional: denies: Fever Cardiac: denies: Chest pain / pressure Respiratory: reports: Dyspnea GI: denies: Nausea, Vomiting Skin: reports: Rash PD PAST MEDICAL HISTORY - Past Medical History Cardiovascular: None Respiratory: None Endocrine/Autoimmune: None Psych: None Musculoskeletal: Gout - Past Surgical History Past Surgical History: No - Present Medications Home Medications: Ambulatory Orders Medication Instructions Recorded Confirmed EPINEPHrine [Epinephrine] 0.3 mg IJ ONCE PRN #1 auto.injct 04/02/19 - Allergies Allergies/Adverse Reactions: Allergies Allergy/AdvReac Type Severity Reaction Status Date / Time shellfish derived Allergy Anaphylaxis Verified 04/02/19 04:45 - Social History Does the pt smoke?: Yes Smoking Status: Former smoker Does the pt drink ETOH?: No Does the pt have substance abuse?: No - Immunizations Immunizations are current?: Yes - POLST Patient has POLST: No PD ED PE NORMAL - Vitals Vital signs reviewed: Yes - General General: Alert and oriented X 3, No acute distress - HEENT HEENT: Atraumatic, PERRL, Other (No swelling of the lips or oropharynx. Airway is widely patent) - Cardiac Cardiac: RRR, No murmur - Respiratory Respiratory: No respiratory distress, Clear bilaterally, Other (No wheezes.) - Abdomen Abdomen: Soft, Non tender, Non distended - Derm Derm: Other (Diffuse mild erythema with small scattered papules over the thorax) - Extremities Extremities: No deformity - Neuro Neuro: Alert and oriented X 3 - Psych Psych: Normal mood, Normal affect Results - Vitals Vitals: Vital Signs - 24 hr 04/02/19 04/02/19 04/02/19 04:35 04:45 05:11 Temperature 36.6 C Heart Rate 64 64 75 Respiratory 22 22 Rate Blood Pressure 142/96 H 126/94 H O2 Saturation 99 100 04/02/19 05:30 Temperature Heart Rate 79 Respiratory 21 Rate Blood Pressure 128/91 H O2 Saturation 98 Oxygen O2 Source Room air PD MEDICAL DECISION MAKING - ED course Complexity details: considered differential (Allergic reaction, anaphylaxis, hives) ED course: On arrival patient's has a rash, and is complaining of some mild feeling of shortness of breath, He states that earlier when he woke up he had some swelling around his eyes and felt a slight discomfort on his lips as well, his airway is widely patent and his vital signs are unremarkable. He was placed on the monitor. He was given epinephrine 0.3 mg IM for anaphylaxis, IV access was obtained and he was further given Solu-Medrol, 25 mg of Benadryl IV, famotidine. Patient had quick and complete resolution of his symptoms. I reevaluated the patient frequently, and he had no further Respiratory symptoms and his rash resolved completely. He was observed in the emergency department for close to 2 hours, he continued to have no symptoms, felt well and was ready to go home. I discussed the symptoms of anaphylactic reactions, and indications for using EpiPen. EpiPens were prescribed to patient. He understands her with any recurrent symptoms he needs to return to the emergency department. He is also going to avoid eating shrimp which is the Apparent trigger for this episode. Departure - Departure Clinical Impression: Anaphylaxis Qualifiers: Encounter type: initial encounter Qualified Code(s): T78.2XXA - Anaphylactic shock, unspecified, initial encounter Condition: Good Instructions: ED Anaphylaxis General Prescriptions: EPINEPHrine [Epinephrine] 0.3 mg IJ ONCE PRN #1 auto.injct PRN Reason: Anaphylaxis Comments: You had a serious allergic reaction today. I am prescribing you an epinephrine pen which you should carry with you, and in the future if you are having signs of severe allergy including trouble breathing, Lip or tongue swelling, or rash with vomiting, use the EpiPen. Over the next several days you can take Benadryl as needed for mild itching, but if you are having recurrence of any more serious symptoms you should use the EpiPen and return to the emergency department. Avoid shrimp as this seems to be the trigger of your reaction Forms: Activity restrictions
[2019-04-02] MEDS ORDERED: EPINEPHrine 1 MG/ML AMP IM STA (04:53)
[2019-04-02 06:12] VITALS: BP 121/73
== END 2019-04-02 06:22 | disposition home or self-care (01) ==
LOC: ED 04:32
DX: T78.2XXA Anaphylactic shock, unspecified, initial encounter (principal); Z87.891 Personal history of nicotine dependence
CPT/HCPCS: 96372; 96374; 99284; 99285; J1200

== ENCOUNTER 2019-04-28 12:04 | Emergency (ER) | payer OTHER ==
[2019-04-28 14:39] VITALS: BP 127/74
[2019-04-28] MEDS ORDERED: IBUPROFEN 800 MG TABLET PO STA (14:49)
[2019-04-28] MEDS ORDERED: predniSONE 20 MG TABLET PO STA (14:49)
--- NOTE | 2019-04-28 15:00 | ED Physician Documentation ---
History of Present Illness - Stated complaint Stated Complaint: R ELBOW/L FOOT PX - Chief complaint Chief Complaint: Ext Problem - History obtained from History obtained from: Patient - History of Present Illness Timing: How many days ago (3) Pain level max: 8 Pain level now: 7 - Additonal information Additional information: 43-year-old male with a longstanding history of gout. He states that he is normally on allopurinol, he missed a few doses. He states that started to develop pain in the right elbow and left foot. Took colchicine without relief. No fevers. No trauma. Worse with movement and better with rest. Review of Systems Constitutional: denies: Fever, Chills Respiratory: denies: Cough GI: denies: Vomiting, Diarrhea Skin: denies: Rash PD PAST MEDICAL HISTORY - Past Medical History Cardiovascular: None Respiratory: None Endocrine/Autoimmune: None Psych: None Musculoskeletal: Gout - Past Surgical History Past Surgical History: No - Present Medications Home Medications: Ambulatory Orders Medication Instructions Recorded Confirmed EPINEPHrine [Epinephrine] 0.3 mg IJ ONCE PRN #1 auto.injct 04/02/19 Hydrocodone/Acetaminophen 1 - 2 each PO Q6H PRN #14 tablet 04/28/19 [Hydrocodon-Acetaminophen 5-325] Ibuprofen [Motrin] 800 mg PO Q8H PRN #30 tablet 04/28/19 predniSONE [Prednisone] 40 mg PO DAILY #10 tablet 04/28/19 - Allergies Allergies/Adverse Reactions: Allergies Allergy/AdvReac Type Severity Reaction Status Date / Time shellfish derived Allergy Anaphylaxis Verified 04/28/19 12:20 - Social History Does the pt smoke?: Yes Smoking Status: Former smoker Does the pt drink ETOH?: No Does the pt have substance abuse?: No - Immunizations Immunizations are current?: Yes - POLST Patient has POLST: No PD ED PE NORMAL - Vitals Vital signs reviewed: Yes - General General: Alert and oriented X 3, Well developed/nourished - HEENT HEENT: PERRL, Moist mucous membranes - Neck Neck: Supple, no meningeal sign - Cardiac Cardiac: RRR, Strong equal pulses - Respiratory Respiratory: No respiratory distress, Clear bilaterally - Derm Derm: Warm and dry - Extremities Extremities: Other (Tender to palpation across the right elbow, olecranon bursa area. Does have full range of motion of the area. NVI.) - Neuro Neuro: Alert and oriented X 3 - Psych Psych: Normal mood, Normal affect Results - Vitals Vitals: Vital Signs - 24 hr 04/28/19 04/28/19 12:15 14:38 Temperature 36.9 C 36.9 C Heart Rate 72 66 Respiratory 18 16 Rate Blood Pressure 152/82 H 127/74 O2 Saturation 98 96 Oxygen O2 Source Room air PD MEDICAL DECISION MAKING - ED course Complexity details: reviewed results, re-evaluated patient, considered differential, d/w patient ED course: Patient with what appears to be a gout flare. Will place on steroids and pain medication for home. No evidence of septic joint. Neurovascular intact. Declines arthrocentesis. Patient counseled regarding signs and symptoms for which I believe and urgent re-evaluation would be necessary. Patient with good understanding of and agreement to plan and is comfortable going home at this time This document was made in part using voice recognition software. While efforts are made to proofread this document, sound alike and grammatical errors may occur. Departure - Departure Disposition: 01 Home, Self Care Clinical Impression: Gouty arthritis Condition: Good Instructions: ED Arthritis Gout Follow-Up: your,doctor in 1 week [Other] Prescriptions: Hydrocodone/Acetaminophen [Hydrocodon-Acetaminophen 5-325] 1 - 2 each PO Q6H PRN #14 tablet PRN Reason: pain Ibuprofen [Motrin] 800 mg PO Q8H PRN #30 tablet PRN Reason: PAIN &/OR FEVER predniSONE [Prednisone] 40 mg PO DAILY #10 tablet Comments: Use the medications as prescribed. Return if you worsen. You should start to notice improvement within the next 24 hours. Return if you worsen including worsening pain or fevers. Do not drink alcohol or drive while on narcotic pain medicine. Note that many narcotic pain relievers also contain tylenol/acetaminophen. Please ensure that your total dose of acetaminophen from all sources does not exceed 3 grams (3000mg) per day. You may constipated on this medication, take a stool softener such as "Colace" twice a day while you are on it. Also recommend a [id number] laxative such as senna or MiraLAX any day that you do not have a bowel movement. If you received narcotic pain medication in the emergency department, do not drive or operate machinery for the next 24 hours.
== END 2019-04-28 15:06 | disposition home or self-care (01) ==
LOC: ED 12:04
DX: M10.021 Idiopathic gout, right elbow (principal); M10.072 Idiopathic gout, left ankle and foot; Z87.891 Personal history of nicotine dependence
CPT/HCPCS: 99283; 99284; A9270; J7512

== ENCOUNTER 2019-05-11 21:28 | Emergency (ER) | payer OTHER ==
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
[2019-05-11 23:08] VITALS: BP 150/72
== END 2019-05-11 23:07 | disposition home or self-care (01) ==
LOC: ED 21:28
DX: H57.11 Ocular pain, right eye (principal); Z57.5 Occupational exposure to toxic agents in other industries; Z87.891 Personal history of nicotine dependence
CPT/HCPCS: 99282; 99283

== ENCOUNTER 2019-05-20 08:54 | Outpatient (CLI) | payer OTHER ==
--- NOTE | 2019-05-20 09:43 | SLEEP CARE CONSULTATION ---
Information from patient questionnaire entered by Yelitza Zheng. I have reviewed and concur with the information entered by Yelitza Zheng. This document represents the service I personally performed and the decisions made by me, Soni Gupta, RN, MSN, FOW[employer]OD [employer]. History of Present Illness Previous diagnosis: Moderate, Obstructive Sleep Apnea-Hypopnea Syndrome AHI: 20.2 Reason for follow up: three month (and mask refit) Equipment type: CPAP Equipment obtained from: [facility] Prior sleep studies: Yes HPI additional information: the new Res Med N 30 nasal mask is working much better. It is more comfortable. He is still waking with mask off his face. He sleeps with spouse who awakens to his snoring and mask off of face but does not wake him to use mask. CPAP Compliance Data - Data Reviewed with Patient Average duration of nightly device use: 2h 44m Compliance rate %: 12.2 Current pressure setting (cmH2O): 4-20 Humidity settin Average residual AHI: 1.6 Average large leak: 1m 49s Subjective Missed days of use due to: reports: travel (forgot to take to vacation) Patient concerns: reports: mask discomfort (left nare ), other (he is able to use CPAP longer when sleeps on his back but usual position is prone./ he also awakens to sound of CPAP that seems to be pressure adjustment from description. ). denies: aerophagia, air blowing in eyes, mask leak noise, condensation in mask/hose, nasal congestion, dry mouth, nose, throat, epistaxis Observed to snore while using device: No Current pressure setting perceived as: comfortable On therapy, patient: reports: sleeping better, awakening more refreshed, being more awake and alert during the day, more rested overall. denies: drowsiness while driving Initial [place] Sleepiness Scale score: 10 Current [place] Sleepiness Scale score: 4 Allergies and Home Medications Known drug allergies: No (shell fish allergy) Home medication list reviewed: Yes Allergy and home medication list: allopurinol 700mg daily sertraline 100mg daily cochicine 6 mg daily Prednisone 40mg daily as needed Review of Systems Review of systems same as previous: Yes Physical Exam Cuff size: long Heart Rate: 64 O2 Saturation: 97 Height: 6 ft Weight: 207 lb 6.4 oz Body Mass Index: 28.1 BMI Classification: Overweight Nasal exam: positive: erythema, other (clear nasal drainage.) Impression and Plan 1. Obstructive Sleep Apnea-Hypopnea Syndrome, , with poor but better treatment compliance and good apnea control. On CPAP therapy, the patient has better sleep quality and is more rested overall. For his nasal irritation , no overt abrasion noted, just mild erythema of septum. I explained that soreness could be from nasal dryness or mask cushion needing to be changed more frequently as well as his prone sleeping position. He is already at highest humidity and water is being used. I gave the patient a few samples of Mary Ease nasal cream to be used 4 times a day for 7-10 days and then as needed. Printed information given about the product and how to obtain more. Since he is waking with his mask off for unknown reason, I will have spouse awaken him to replace mask if she notices the mask off. He also sleeps prone most of time and is more successful with mask staying on when supine. Thus the mask may become uncomfortable being pushed in face in prone position causing nasal irritation. So I showed him a CPAP pillow that has cutouts for mask that many of my prone sleepers use successfully for improved comfort of sleep. He is advised to consider buying this or another style online. They run about $60. I will also change his autoCPAP pressure to mean and 90% range of 6-9cmH20 only to reduce noise of adjustment he seems to be waking to. I will also have the device checked for malfunction by [facility]. Patient's apnea severity and rationale for treatment to reduce apnea, improve sleep quality and reduce cardiovascular and cerebrovascular events was reviewed. Hopefully the above measures will assist patient to use CPAP more successfully. * * Change CPAP pressure to 6-9 cmH2O * Mary ease nasal cream * Consider CPAP pillow * change mask cushion more frequently * Notify me if snoring with mask or feeling that the pressure is too much or too little * Call this office if any problems using CPAP * Return for follow up in 1-2 months , or sooner if concerns arise Time Spent with Patient (minutes): 35 I spent 100% of this visit face to face with the patient with greater than 50% of this was spent time counseling the patient and coordination of care.
== END 2019-05-20 08:55 | disposition home or self-care (01) ==
LOC: SC 08:54
PROVIDERS: ATTEND Nurse Practitioner Family
DX: G47.33 Obstructive sleep apnea (adult) (pediatric) (principal)
CPT/HCPCS: 99212; 99214

== ENCOUNTER 2019-07-05 14:29 | Emergency (ER) | payer OTHER ==
[2019-07-05 14:39] VITALS: BP 147/78
[2019-07-05] MEDS ORDERED: BUFFERED LIDOCAINE 10 ML SYRINGE SUBQ STA (14:44)
--- NOTE | 2019-07-05 14:45 | ED Physician Documentation ---
PD HPI UPPER EXT INJURY - Stated complaint Stated Complaint: R ELBOW PX - Chief complaint Chief Complaint: Ext Problem - History obtained from History obtained from: Patient (43-year-old gentleman with history of gout has had 1 month of painful swelling over the outside of the right elbow. No injury. No fevers.) Review of Systems Constitutional: denies: Chills Cardiac: denies: Chest pain / pressure, Palpitations Respiratory: denies: Dyspnea, Cough PD PAST MEDICAL HISTORY - Past Medical History Past Medical History: Yes Cardiovascular: None Respiratory: None Neuro: None Endocrine/Autoimmune: None GI: None : None HEENT: None Psych: None Musculoskeletal: Gout Derm: None - Past Surgical History Past Surgical History: No - Present Medications Home Medications: Ambulatory Orders Medication Instructions Recorded Confirmed EPINEPHrine [Epinephrine] 0.3 mg IJ ONCE PRN #1 auto.injct 04/02/19 Hydrocodone/Acetaminophen 1 - 2 each PO Q6H PRN #14 tablet 04/28/19 [Hydrocodon-Acetaminophen 5-325] Ibuprofen [Motrin] 800 mg PO Q8H PRN #30 tablet 04/28/19 predniSONE [Prednisone] 40 mg PO DAILY #10 tablet 04/28/19 Cephalexin [Keflex] 500 mg PO Q6H #28 capsule 07/05/19 Meloxicam [Mobic] 7.5 mg PO BID PRN #20 tablet 07/05/19 - Allergies Allergies/Adverse Reactions: Allergies Allergy/AdvReac Type Severity Reaction Status Date / Time shellfish derived Allergy Anaphylaxis Verified 05/11/19 21:39 - Social History Does the pt smoke?: Yes Smoking Status: Current every day smoker Does the pt drink ETOH?: No Does the pt have substance abuse?: No - Immunizations Immunizations are current?: Yes - POLST Patient has POLST: No PD ED PE NORMAL - Vitals Vital signs reviewed: Yes - General General: Alert and oriented X 3, No acute distress - Extremities Extremities: Other (He has what looks like nonseptic olecranon bursitis with full range of motion of the right elbow. No cellulitis.) - Neuro Neuro: Alert and oriented X 3, Normal speech Results - Vitals Vitals: Vital Signs - 24 hr 07/05/19 14:36 Temperature 36.8 C Heart Rate 79 Respiratory 16 Rate Blood Pressure 147/78 H O2 Saturation 98 Oxygen O2 Source Room air Procedures - Abscess I&D (location) R olecranon bursitis Preparation: Chlorhexadine, Lidocaine 1% Incision: Incised with scalpel (stab, tiny), Culture obtained. No: Purulent drainage (serous fluid, 5ml), Packed Other: Pt tolerated well, Dressing applied, Antibiotic prescribed Departure - Departure Disposition: Home, Self Care Clinical Impression: Olecranon bursitis of right elbow Condition: Good Record reviewed to determine appropriate education?: Yes Instructions: ED Bursitis Prescriptions: Cephalexin [Keflex] 500 mg PO Q6H #28 capsule Meloxicam [Mobic] 7.5 mg PO BID PRN #20 tablet PRN Reason: Pain Comments: Follow-up with your doctor in 1 week, return for new or worsening symptoms. Keep it covered today, we will call you if the culture mandates an antibiotic change.
== END 2019-07-05 15:10 | disposition home or self-care (01) ==
LOC: ED 14:29
DX: M70.21 Olecranon bursitis, right elbow (principal); F17.200 Nicotine dependence, unspecified, uncomplicated
CPT/HCPCS: 10061; 87070; 87205

== ENCOUNTER 2020-04-21 14:37 | Emergency (ER) | payer OTHER ==
--- NOTE | 2020-04-21 15:03 | ED Physician Documentation ---
History of Present Illness - Stated complaint Stated Complaint: RT ELBOW PX - Chief complaint Chief Complaint: Ext Problem - History obtained from History obtained from: Patient - History of Present Illness Timing: Last night - Additonal information Additional information: 44-year-old male presents the emergency department with acute on that right elbow pain. He reports that yesterday evening he was doing push-ups and felt a pop in his right elbow and he has had pain since. He does have a history of gout in his right foot and he began taking colchicine without relief of pain. At this time he has moderate swelling of the elbow without erythema. The majority of the pain is in the posterior elbow. He does have a hx of bursitis in this place in the past Review of Systems Constitutional: reports: Reviewed and negative Eyes: reports: Reviewed and negative Ears: reports: Reviewed and negative Throat: reports: Dental pain / toothache Cardiac: reports: Reviewed and negative Respiratory: reports: Reviewed and negative GI: reports: Reviewed and negative : reports: Reviewed and negative Skin: reports: Reviewed and negative Musculoskeletal: reports: Joint pain (right elbow), Joint swelling (right elbow) Neurologic: reports: Reviewed and negative Psychiatric: reports: Reviewed and negative PD PAST MEDICAL HISTORY - Past Medical History Past Medical History: Yes Cardiovascular: None Respiratory: None Neuro: None Endocrine/Autoimmune: None GI: None : None HEENT: None Psych: None Musculoskeletal: Gout Derm: None - Past Surgical History Past Surgical History: No - Present Medications Home Medications: Ambulatory Orders Medication Instructions Recorded Confirmed Cephalexin [Keflex] 500 mg PO Q6H #28 capsule 04/21/20 Colchicine 0 mg DAILY 04/21/20 04/21/20 Ibuprofen [Motrin] 600 mg PO Q6H PRN #30 tab 04/21/20 allopurinoL [Zyloprim] 0 mg DAILY 04/21/20 04/21/20 - Allergies Allergies/Adverse Reactions: Allergies Allergy/AdvReac Type Severity Reaction Status Date / Time shellfish derived Allergy Anaphylaxis Verified 04/21/20 14:47 - Social History Does the pt smoke?: Yes Smoking Status: Current some day smoker Does the pt drink ETOH?: Yes Does the pt have substance abuse?: No - Immunizations Immunizations are current?: Yes - POLST Patient has POLST: No PD ED PE EXPANDED - General General: Alert, In Pain - Extremities Extremities: Right elbow (mild swelling posterior elbow without erythema. some fluid collection noted. Focal tenderness posterior elbow distal humerus. No lateral or medial tenderness eilicited. boggy, nontender fluidcollection over the olecranon without redness. Normal biceps flexion. reduced ROM secondary to pain) Results - Vitals Vitals: Oxygen O2 Source Room air - Rads (name of study) right elbow Radiology: EMP read indepedently (No acute findings.) PD MEDICAL DECISION MAKING - ED course Complexity details: reviewed results, re-evaluated patient, considered differential, d/w patient ED course: -year-old male presents the emergency department with chief complaint of acute posterior elbow pain following push-ups yesterday evening. He does have a history of bursitis in this elbow. On exam he has tenderness but no erythema. No fevers. There is some subtle boggy fluctuance. My suspicion for a septic bursitis is very low. X-ray does not show anything acutely posterior. There may be an age-indeterminate Medial epicondyle fracture. However he does not have pain in this area. Patient will be placed in an Ruperto bandage and advised cool compress. rx keflex and motrin. pt to f/u with [facility] tomorrow. emergent return precautions discussed Departure - Departure Disposition: 01 Home, Self Care Clinical Impression: Right elbow pain, Olecranon bursitis of right elbow Condition: Stable Record reviewed to determine appropriate education?: Yes Instructions: ED Bursitis Elbow Olecranon Prescriptions: Cephalexin [Keflex] 500 mg PO Q6H #28 capsule Ibuprofen [Motrin] 600 mg PO Q6H PRN #30 tab PRN Reason: Pain Comments: Richard it looks like you likely have a sprain of the elbow following the push-ups or the bursa in the back of your elbow may be inflamed. Please take the ibuprofen as prescribed with food 3 times a day. I also did prescribe Keflex and antibiotic. Would like you to continue to Ruperto wrap the elbow for compression and to reduce swelling as well as apply ice to the elbow. Please schedule close follow-up with [facility]. If you develop any fevers have redness to the elbow increased swelling or pain please return to the ER
--- NOTE | 2020-04-21 15:18 | XRAY Report ---
PROCEDURE: Elbow 3 View RT INDICATIONS: acute pain after doing pushups TECHNIQUE: 3 views of the elbow were acquired. COMPARISON: None FINDINGS: Bones: No definite acute fracture or dislocation. Tiny corticated calcification adjacent to superior aspect of medial epicondyles is seen suggestive of age-indeterminate avulsion injury. No suspicious b marti lesions. Soft tissues: No elbow joint effusion. No suspicious soft tissue calcifications. IMPRESSION: Suggestion of age-indeterminate avulsion injury involving superior aspect of medial epicondyles. No o ther fracture or dislocation. No significant joint effusion. Reviewed by: Ranjan Chu MD on 04/21/2020 3:17 PM PST Approved by: Ranjan Chu MD on 04/21/2020 3:17 PM PST Station ID: [id number]
== END 2020-04-21 16:15 | disposition home or self-care (01) ==
LOC: ED 14:37
DX: M25.521 Pain in right elbow (principal); M70.21 Olecranon bursitis, right elbow; Y93.B2 Activity, push-ups, pull-ups, sit-ups; F17.200 Nicotine dependence, unspecified, uncomplicated
CPT/HCPCS: 99283

== ENCOUNTER 2020-09-09 09:29 | Outpatient (CLI) | payer OTHER ==
--- NOTE | 2020-09-09 10:23 | SLEEP CARE CONSULTATION ---
Information from patient questionnaire entered by Delmi Thomson. I have reviewed and concur with the information entered by Delmi Thomson. This document represents the service I personally performed and the decisions made by , Robyn Faustin ARNP. History of Present Illness Service Date and Time: 09/09/2020 09 Previous diagnosis: Moderate, Obstructive Sleep Apnea-Hypopnea Syndrome AHI: 20.2 (in 2008) Reason for follow up: annual (last seen 05/2019 ) Equipment type: CPAP Equipment obtained from: [id number] Mask style: Nasal Mask brand: Respironics (Dreamwear) Backup mask available: No (will keep old mask when replaced) Last cushion change: 2 weeks Prior sleep studies: Yes Year and Where: 2008 - [facility] Sleep HPI additional information: LEODAN MCGEE was diagnosed to have moderate, AHI 20.2, obstructive sleep apnea-hypopnea syndrome and returned today for CPAP therapy annual follow-up. Sleep Study - Results Prior sleep studies: Yes CPAP Compliance Data - Data Reviewed with Patient Average duration of nightly device use: 2 hours 40 minutes Compliance rate %: 6.7 (180 days (0 last 30 days)) Current pressure setting (cmH2O): 6-9 Average residual AHI: 0.7 Average large leak: 1 minute 9 secs Subjective Missed days of use due to: reports: mask issues, illness (has seasonal allergies that reduced ability to tolerate mask; sores in nose too), travel Patient concerns: reports: mask discomfort, air blowing in eyes, mask leak noise, nasal congestion (allergies), dry mouth, nose, throat (nose and throat), epistaxis (once in a while), other. denies: aerophagia, condensation in mask/hose Observed to snore while using device: No Current pressure setting perceived as: comfortable On therapy, patient: reports: sleeping better, awakening more refreshed, being more awake and alert during the day, more rested overall. denies: drowsiness while driving Initial [place] Sleepiness Scale score: 12 (in 2008) Current [place] Sleepiness Scale score: 4 Allergies and Home Medications Home medication list reviewed: Yes (no new meds) Review of Systems Review of systems same as previous: Yes (no changes) Physical Exam Heart Rate: 75 O2 Saturation: 90 Height: 6 ft Weight: 192 lb Body Mass Index: 26.0 BMI Classification: Overweight Impression and Plan 1. Obstructive Sleep Apnea-Hypopnea Syndrome, moderate, with poor treatment compliance and good apnea control. On CPAP therapy, the patient has better sleep quality and is more rested overall. He states he really likes the CPAP and intends to continue to use it. He states his machine has been dropped and he does not think the machine is working right. 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 The patients CPAP is over 5 years old and of reasonable use. In addition, it is starting to make louder noise, a sign of malfunction. Thus, the CPAP will be updated. A DWO prescription will be made. Compliance guidelines for new device and follow up discussed. He would like to try a full face mask because the nasal cushion mask is not comfortable and is difficulty to breathe in when he has allergies. He has severe allergies that can limit his ability to use the machine due to congestion in his nose. He also get pimples in his nose that cause soreness when he puts on his mask. This is uncomfortable and he does not tolerate the mask for full 4 hours. Compliance guidelines reviewed for insurance coverage. Patient was counseled on the difference between meeting compliance and optimal use of CPAP. Optimal use of CPAP is use of CPAP with all sleep to obtain maximum benefit of treatment. Patient is encouraged to use CPAP with all sleep. Patient's apnea severity and rationale for treatment to reduce apnea, improve sleep quality and reduce cardiovascular and cerebrovascular events was reviewed. I also reviewed the benefit of consistent device use of CPAP for depression/anxiety. * Continue auto CPAP pressure at 6-9 cmH2O * Update machine * Notify me if snoring with mask or feeling that the pressure is too much or too little * Attempt to lose weight * Call this office if any problems using CPAP * Return for follow up one month after getting new machine, or sooner if concerns arise Counseling Topics: Spare mask, Weight control Visit Type: In Office Time Spent with Patient (minutes): 28 Provider Statement: I spent 100% of the Face to Face Visit with the patient with greater than 50% spent counseling the patient and coordination of care.
== END 2020-09-09 09:30 | disposition home or self-care (01) ==
LOC: SC 09:29
PROVIDERS: ATTEND Nurse Practitioner Family
DX: G47.33 Obstructive sleep apnea (adult) (pediatric) (principal); E66.3 Overweight; Z68.26 Body mass index [BMI] 26.0-26.9, adult
CPT/HCPCS: 99212; 99213

== ENCOUNTER 2020-11-12 07:47 | Emergency (ER) | payer OTHER ==
--- NOTE | 2020-11-12 08:12 | ED Physician Documentation ---
PD HPI NVD - Stated complaint Stated Complaint: DIARRHEA - Chief complaint Chief Complaint: Abd Pain - History obtained from History obtained from: Patient - History of Present Illness Timing - onset: How many days ago (4) Timing - duration: Days (4) Timing - details: Gradual onset, Still present Associated symptoms: Abdominal pain Contributing factors: Sick contact ( ill with similar), Bad food Improved by: BM Worsened by: Eating Similar symptoms before: Has not had sx before Recently seen: Not recently seen - Additonal information Additional information: Previously well 45-year-old male indicates that on 07 November he ate he thinks too many oysters and the day following that he developed diarrhea. He has had multiple diarrheal movements very watery they are only now starting to get some some texture to them and he is feeling weak. Is come to the emergency department for evaluation. He states there has been some blood periodically in the stool he has not had significant abdominal pain but does get some cramping. He has not had fever. Review of Systems Constitutional: reports: Fatigue. denies: Fever, Chills Eyes: denies: Decreased vision Ears: denies: Ear pain Nose: denies: Congestion Throat: denies: Sore throat Cardiac: denies: Chest pain / pressure, Palpitations Respiratory: denies: Dyspnea, Cough GI: reports: Abdominal Pain, Nausea, Vomiting (once), Diarrhea : denies: Dysuria, Frequency Skin: denies: Rash Musculoskeletal: denies: Neck pain, Back pain, Extremity pain PD PAST MEDICAL HISTORY - Past Medical History Cardiovascular: None Respiratory: None Neuro: None Endocrine/Autoimmune: None GI: None : None HEENT: None Psych: None Musculoskeletal: Gout Derm: None - Past Surgical History Past Surgical History: No - Present Medications Home Medications: Ambulatory Orders Medication Instructions Recorded Confirmed Colchicine 0 mg DAILY 04/21/20 11/12/20 Ibuprofen [Motrin] 600 mg PO Q6H PRN #30 tab 04/21/20 11/12/20 Meloxicam [Mobic] 7.5 mg PO DAILY 04/21/20 11/12/20 allopurinoL [Zyloprim] 300 mg PO DAILY 04/21/20 11/12/20 Ciprofloxacin HCl [Cipro] 500 mg PO BID #10 tablet 11/12/20 Sertraline [Zoloft] 150 mg PO DAILY 11/12/20 11/12/20 - Allergies Allergies/Adverse Reactions: Allergies Allergy/AdvReac Type Severity Reaction Status Date / Time shellfish derived Allergy Anaphylaxis Verified 04/21/20 14:47 - Social History Does the pt smoke?: Yes Smoking Status: Current every day smoker Does the pt drink ETOH?: Yes Does the pt have substance abuse?: No - Immunizations Immunizations are current?: Yes - POLST Patient has POLST: No PD ED PE NORMAL - Vitals Vital signs reviewed: Yes (hypertensive ) - General General: Alert and oriented X 3, No acute distress, Well developed/nourished - HEENT HEENT: Atraumatic, PERRL, EOMI - Neck Neck: Supple, no meningeal sign, No bony TTP - Cardiac Cardiac: RRR, No murmur - Respiratory Respiratory: No respiratory distress, Clear bilaterally - Abdomen Abdomen: Normal bowel sounds, Soft, Non distended, No organomegaly, Other (mild general tenderness without garding or rebound tenderness. ) - Back Back: No CVA TTP, No spinal TTP - Derm Derm: Normal color, Warm and dry, No rash - Extremities Extremities: No deformity, No edema - Neuro Neuro: Alert and oriented X 3, abrasive wheel molder 2-12 intact, No motor deficit, No sensory deficit, Normal speech Eye Opening: Spontaneous Motor: Obeys Commands Verbal: Oriented GCS Score: 15 - Psych Psych: Normal mood, Normal affect Results - Vitals Vitals: Vital Signs - 24 hr 11/12/20 07:52 Temperature 36.1 C L Heart Rate 56 L Respiratory 16 Rate Blood Pressure 134/87 H O2 Saturation 100 Oxygen O2 Source Room air - Labs Labs: Laboratory Tests 11/12/20 11/12/20 08:55 08:55 WBC 7.3 RBC 4.37 L Hgb 13.4 L Hct 39.8 L MCV 91.1 MCH 30.7 MCHC 33.7 RDW 13.7 Plt Count 220 MPV 8.7 Neut # (Auto) 4.9 Lymph # (Auto) 1.5 [place] # (Auto) 0.5 Eos # (Auto) 0.4 Baso # (Auto) 0.0 Absolute Nucleated RBC 0.00 Nucleated RBC % 0.0 Sodium 136 Potassium 3.9 Chloride 102 Carbon Dioxide 27 Anion Gap 7.0 BUN 14 Creatinine 1.0 Estimated GFR (MDRD) 82 L Glucose 98 Calcium 8.9 Total Bilirubin 0.6 AST 32 ALT 33 Alkaline Phosphatase 55 Total Protein 7.3 Albumin 4.1 Globulin 3.2 Albumin/Globulin Ratio 1.3 Lipase 53 H Procedures - IVC sono (time) 0825 Bedside IVC sono: IVC measures (cm) (1.72), Euvolemia PD MEDICAL DECISION MAKING - ED course Complexity details: reviewed results, re-evaluated patient, considered differential, d/w patient ED course: 44-year-old male with 4 days of acute watery diarrhea presents to the emergency department with weakness. He is found to be well-hydrated on interrogation the inferior vena cava and blood is obtained to evaluate electrolyte status. The patient's electrolyte status is normal he does not have potassium deficiency and he is not dehydrated. We will use empiric antibiotic treatment in this patient with 5 days of diarrhea. Departure - Departure Disposition: 01 Home, Self Care Clinical Impression: Diarrhea Qualifiers: Diarrhea type: presumed infectious Qualified Code(s): R19.7 - Diarrhea, unspecified Condition: Stable Instructions: ED Diarrhea Bacterial Follow-Up: JESU PAPPAS MD [Primary Care Provider] - Prescriptions: Ciprofloxacin HCl [Cipro] 500 mg PO BID #10 tablet
[2020-11-12 09:01] LABS: BASOPHILS % (AUTO) 0.1 %; EOSINOPHILS # (AUTO) 0.4 10^3/uL (0.0-0.7); EOSINOPHILS % (AUTO) 4.8 %; HCT - HEMATOCRIT 39.8 % (42.0-52.0); HGB - HEMOGLOBIN 13.4 g/dL (14.0-18.0); LYMPHOCYTES # (AUTO) 1.5 10^3/uL (1.5-3.5); LYMPHOCYTES % (AUTO) 20.4 %; MEAN CORPUSCULAR HEMOGLOBIN 30.7 pg (27.0-31.0); MEAN CORPUSCULAR HGB CONC 33.7 g/dL (32.0-36.0); MEAN CORPUSCULAR VOLUME 91.1 fL (80.0-94.0); MEAN PLATELET VOLUME 8.7 fL (7.4-11.4); MONOCYTES # (AUTO) 0.5 10^3/uL (0.0-1.0); MONOCYTES % (AUTO) 7.1 %; NEUTROPHILS # (AUTO) 4.9 10^3/uL (1.5-6.6); NEUTROPHILS % (AUTO) 67.3 %; PLT - PLATELET COUNT 220 10^3/uL (130-450); RED BLOOD COUNT 4.37 10^6/uL (4.70-6.10); RED CELL DISTRIBUTION WIDTH 13.7 % (12.0-15.0); WHITE BLOOD COUNT 7.3 x10^3/uL (4.8-10.8)
[2020-11-12 09:14] LABS: ALBUMIN 4.1 g/dL (3.2-5.5); ALBUMIN/GLOBULIN RATIO 1.3 (1.0-2.2); BILIRUBIN,TOTAL 0.6 mg/dL (0.2-1.0); CALCIUM 8.9 mg/dL (8.5-10.3); POTASSIUM 3.9 mmol/L (3.5-5.0); TOTAL PROTEIN 7.3 g/dL (6.7-8.2)
[2020-11-12 09:49] VITALS: BP 122/82
== END 2020-11-12 10:02 | disposition home or self-care (01) ==
LOC: ED 07:47
DX: R19.7 Diarrhea, unspecified (principal); F17.200 Nicotine dependence, unspecified, uncomplicated
CPT/HCPCS: 36415; 80053; 83690; 85025; 99283; 99284

== ENCOUNTER 2020-11-12 10:43 | Outpatient (CLI) | payer OTHER ==
--- NOTE | 2020-11-12 11:12 | SLEEP CARE CONSULTATION ---
Information from patient questionnaire entered by Delmi Thomson. I have reviewed and concur with the information entered by Delmi Thomson. This document represents the service I personally performed and the decisions made by , Robyn Faustin ARNP. History of Present Illness Service Date and Time: 11/12/2020 1043 Previous diagnosis: Moderate, Obstructive Sleep Apnea-Hypopnea Syndrome AHI: 20.2 (in 2008) Reason for follow up: first compliance after device update Equipment type: CPAP Equipment obtained from: [employer] (getting supplies once done with compliance visit) Mask style: Full face Mask brand: Resmed ([id number]) Backup mask available: No (will keep old mask when replaced) Last cushion change: has not been able to change yet Prior sleep studies: Yes Year and Where: 2008 - [facility] Sleep HPI additional information: LEODAN MCGEE was diagnosed to have moderate, AHI 20.2, obstructive sleep apnea-hypopnea syndrome and returned today for CPAP therapy first compliance after device update follow-up. CPAP Compliance Data - Data Reviewed with Patient Average duration of nightly device use: 4 hr 10 min Compliance rate %: 56.7 Current pressure setting (cmH2O): 6-9 Humidity settin Heated hose settin Average residual AHI: 2.5 Average large leak: 5 min 56 sec Subjective Missed days of use due to: reports: illness Patient concerns: reports: nasal congestion, other (snore while using device). denies: aerophagia, mask discomfort, air blowing in eyes, mask leak noise, condensation in mask/hose, dry mouth, nose, throat, epistaxis Observed to snore while using device: Yes (occasional) Current pressure setting perceived as: comfortable On therapy, patient: reports: sleeping better, awakening more refreshed, being more awake and alert during the day, more rested overall. denies: drowsiness while driving Initial [place] Sleepiness Scale score: 12 (in 2008) Current [place] Sleepiness Scale score: 9 Allergies and Home Medications Home medication list reviewed: Yes (no changes) Review of Systems Review of systems same as previous: Yes (no changes) Physical Exam Heart Rate: 54 O2 Saturation: 96 Height: 6 ft Weight: 202 lb Body Mass Index: 27.3 BMI Classification: Overweight Impression and Plan 1. Obstructive Sleep Apnea-Hypopnea Syndrome, moderate, with fair treatment compliance and good apnea control. On CPAP therapy, the patient has better sleep quality and is more rested overall. Patient states when he has been able to get 6 hours together with the CPAP mask on he wakes up feeling really good rested. He just has difficulty getting comfortable enough to sleep that long. He is continually trying to improve his compliance and he is currently at 56.7%. I will follow-up with him again in about a month to recheck his compliance. Compliance guidelines reviewed for insurance coverage. Patient was counseled on the difference between meeting compliance and optimal use of CPAP. Optimal use o f CPAP is use of CPAP with all sleep to obtain maximum benefit of treatment. Patient is encouraged to use CPAP with all sleep. Patient voiced understanding and agreement with plan of care. Patient's apnea severity and rationale for treatment to reduce apnea, improve sleep quality and reduce cardiovascular and cerebrovascular events was reviewed. I also reviewed the benefit of consistent device use of CPAP for depression/anxiety. * Continue auto CPAP pressure at 6-9 cmH2O * Notify me if snoring with mask or feeling that the pressure is too much or too little * Try to lose weight * Call this office if any problems using CPAP * Return for follow up in 1 month, or sooner if concerns arise Counseling Topics: Spare mask, Weight loss health impact Visit Type: In Office Time Spent with Patient (minutes): 17 Provider Statement: I spent 100% of the Face to Face Visit with the patient with greater than 50% spent counseling the patient and coordination of care.
== END 2020-11-12 10:44 | disposition home or self-care (01) ==
LOC: SC 10:43
PROVIDERS: ATTEND Nurse Practitioner Family
DX: G47.33 Obstructive sleep apnea (adult) (pediatric) (principal); E66.3 Overweight; Z68.27 Body mass index [BMI] 27.0-27.9, adult
CPT/HCPCS: 99212

== ENCOUNTER 2020-12-03 16:40 | Outpatient (CLI) | payer OTHER ==
--- NOTE | 2020-12-03 17:01 | SLEEP CARE CONSULTATION ---
Information from patient questionnaire entered by Teofilo Patel. I have reviewed and concur with the information entered by Teofilo Patel. This document represents the service I personally performed and the decisions made by , Robyn Faustin ARNP. History of Present Illness Service Date and Time: 12/03/2020 1640 Previous diagnosis: Moderate, Obstructive Sleep Apnea-Hypopnea Syndrome AHI: 20.2 (in 2008) Reason for follow up: other (3 week) Equipment type: CPAP Equipment obtained from: [employer] (getting supplies once done with compliance visit) Mask style: Full face Backup mask available: No (needs supplies) Prior sleep studies: Yes Year and Where: 2008 - [facility] Sleep HPI additional information: LEODAN MCGEE was diagnosed to have moderate, AHI 20.2, obstructive sleep apnea-hypopnea syndrome and returned today for CPAP therapy 3 week compliance follow-up. CPAP Compliance Data - Data Reviewed with Patient Average duration of nightly device use: 5 h 28 min Compliance rate %: 76.2 Current pressure setting (cmH2O): 6-9 Humidity settin Heated hose settin Average residual AHI: 1.8 Average large leak: 7 min 36 sec Subjective Missed days of use due to: reports: other (sometimes so tired he falls asleep with it in his hand) Patient concerns: denies: aerophagia, mask discomfort, air blowing in eyes, mask leak noise, condensation in mask/hose, nasal congestion, dry mouth, nose, throat, epistaxis, other Observed to snore while using device: No Current pressure setting perceived as: comfortable On therapy, patient: reports: sleeping better, awakening more refreshed, being more awake and alert during the day, more rested overall. denies: drowsiness while driving Initial [place] Sleepiness Scale score: 12 (in 2008) Current [place] Sleepiness Scale score: 9 Allergies and Home Medications Home medication list reviewed: Yes (no changes) Review of Systems Review of systems same as previous: Yes (no changes) Physical Exam Heart Rate: 62 O2 Saturation: 98 Height: 6 ft Weight: 203 lb Body Mass Index: 27.5 BMI Classification: Overweight Impression and Plan 1. Obstructive Sleep Apnea-Hypopnea Syndrome, moderate, with good treatment compliance and good apnea control. On CPAP therapy, the patient has better sleep quality and is more rested overall. Patient has brought up his compliance. He is satisfied with his treatment and has significant improvement of his apneas. I will follow-up with him next year or sooner if he has any issues. Patient's apnea severity and rationale for treatment to reduce apnea, improve sleep quality and reduce cardiovascular and cerebrovascular events was reviewed. I also reviewed the benefit of consistent device use of CPAP for depression/anxiety. Patient encouraged to try to lose weight, maintain a healthy weight for his overall health. * Continue auto CPAP pressure at 6-9 cmH2O * Notify me if snoring with mask or feeling that the pressure is too much or too little * Attempt to lose weight * Call this office if any problems using CPAP * Return for follow up in 1 year, or sooner if concerns arise Counseling Topics: Spare mask, Weight loss health impact Visit Type: In Office Time Spent with Patient (minutes): 15 Provider Statement: I spent 100% of the Face to Face Visit with the patient with greater than 50% spent counseling the patient and coordination of care.
== END 2020-12-03 16:41 | disposition home or self-care (01) ==
LOC: SC 16:40
PROVIDERS: ATTEND Nurse Practitioner Family
DX: G47.33 Obstructive sleep apnea (adult) (pediatric) (principal)
CPT/HCPCS: 99212